=== PATIENT | female | born 2000 | race Hispanic/Latino ===

== ENCOUNTER 2023-02-12 00:22 | Emergency (ER) | payer OTHER ==
[~2023-02-12] VITALS: Ht 157.5 cm; Wt 85.3 kg
[2023-02-12] MEDS ORDERED: KETOROLAC 60 MG VIAL (30MG/ML) IM ONE (01:30)
[2023-02-12] MEDS ORDERED: DIAZEPAM 5 MG/ML 2 ML SYG IM ONE (01:30)
[2023-02-12] MEDS ORDERED: CYCL10TA16 PO (02:43)
[2023-02-12] MEDS ORDERED: NAPR-1192 PO (02:43)
[2023-02-12 02:53] VITALS: BP 122/72
== END 2023-02-12 03:00 | disposition home or self-care (01) ==
LOC: EDH 00:22
DX: S16.1XXA Strain of muscle, fascia and tendon at neck level, initial encounter (principal); S46.811A Strain of other muscles, fascia and tendons at shoulder and upper arm level, right arm, initial encounter; Y92.488 Other paved roadways as the place of occurrence of the external cause; V89.2XXA Person injured in unspecified motor-vehicle accident, traffic, initial encounter; Y93.I9 Activity, other involving external motion; Y99.8 Other external cause status; J45.909 Unspecified asthma, uncomplicated
CPT/HCPCS: 99284; 70450; 71045; 73060; 73030; 72170; 72125; 96372 ×2; J3360; J1885

== ENCOUNTER 2024-02-19 08:19 | Emergency (ER) | payer OTHER ==
[~2024-02-19] VITALS: Ht 157.5 cm; Wt 84.8 kg
[~2024-02-19 08:19] MED LIST: CYCL10TA16 PO; NAPR-1192 PO
[2024-02-19 09:18] LABS: HCG,QUALITATIVE URINE NEGATIVE (NEGATIVE)
[2024-02-19 09:20] LABS: APPEARANCE,URINE CLEAR (CLEAR); BILIRUBIN,URINE NEGATIVE (NEGATIVE); COLOR,URINE LIGHT-YELLOW (YELLOW); GLUCOSE, URINE (UA) NEGATIVE (NEGATIVE); KETONES,URINE NEGATIVE (NEGATIVE); LEUKOCYTE ESTERASE ,URINE 25 Leu/uL (NEGATIVE); NITRATE,URINE NEGATIVE (NEGATIVE); OCCULT BLOOD,URINE SMALL (NEGATIVE); PH,URINE 5.5 (5.0-8.0); PROTEIN,URINE NEGATIVE (NEGATIVE); UROBILINOGEN,URINE 0.2 mg/dL (0.2-1.0)
[2024-02-19 09:30] LABS: ADD UA MICROSCOPIC YES
[2024-02-19 09:33] LABS: MUCUS,URINE RARE LPF (None Seen); SQUAMOUS EPITHELIAL CELL,UR RARE /HPF (0-2)
[2024-02-19 09:39] LABS: BASOPHILS # (AUTO) 0.03 K/uL (0.00-0.20); BASOPHILS % (AUTO) 0.3 % (0.0-5.0); EOSINOPHILS # (AUTO) 0.16 K/uL (0.00-0.70); EOSINOPHILS % (AUTO) 1.5 % (0.0-8.0); HEMATOCRIT 39.7 % (36-48); IMMATURE GRANULOCYTE ABSOLUTE 0.07 K/uL (0-1); LYMPHOCYTES # (AUTO) 2.6 K/uL (1.0-4.8); LYMPHOCYTES % (AUTO) 23.9 % (21.0-51.0); MEAN CORPUSCULAR HEMOGLOBIN 30.1 pg (27.0-33.0); MEAN CORPUSCULAR HGB CONC 33.2 g/dL (32.0-36.0); MEAN CORPUSCULAR VOLUME 90.6 fL (79-99); MONOCYTES # (AUTO) 0.6 K/uL (0.1-1.0); MONOCYTES % (AUTO) 5.4 % (3.0-13.0); NEUTROPHILS # (AUTO) 7.4 K/uL (1.8-7.7); NEUTROPHILS % (AUTO) 68.3 % (40.0-77.0); PLATELET COUNT (AUTO) 265 K/uL (130-400); RED BLOOD CELL COUNT(AUTO) 4.38 MIL/uL (4.00-5.50); RED CELL DISTRIBUTION WIDTH 13.4 % (11.0-15.5); WHITE BLOOD COUNT (AUTO) 10.9 K/uL (4.8-10.8)
[2024-02-19 09:52] LABS: CREATININE 0.6 mg/dL (0.5-1.0); POTASSIUM 4.2 mmol/L (3.5-5.1)
[2024-02-19 09:57] LABS: ALBUMIN 3.7 g/dL (3.5-5.0); BILIRUBIN,TOTAL 0.3 mg/dL (0.2-1.0); TOTAL PROTEIN, SERUM 7.5 g/dL (6.0-8.3)
[2024-02-19] MEDS: MAG/ALUM/SIMETH 30 ML UDCUP PO ONE (10:00)
[2024-02-19] MEDS: ONDANSETRON 4MG TABLET PO ONE (10:00)
[2024-02-19] MEDS ORDERED: DICY20TA2 PO (10:26)
[2024-02-19] MEDS ORDERED: IOHEXOL-350 75 ML VIAL IV ONE (11:08)
[2024-02-19 12:13] VITALS: BP 124/72; PULSE 76; RESP 18; O2SAT 99
== END 2024-02-19 12:26 | disposition home or self-care (01) ==
LOC: EDH 08:19
DX: K52.9 Noninfective gastroenteritis and colitis, unspecified (principal); J45.909 Unspecified asthma, uncomplicated; Z79.899 Other long term (current) drug therapy
CPT/HCPCS: 99285; 74177; 80053; 83690; 85025; 87086; 81001; 81025; 36415; Q0162; Q9967